=== PATIENT | female | born 1975 | race Caucasian/White ===

== ENCOUNTER 2018-12-10 14:19 | Emergency (ER) | payer OTHER ==
[~2018-12-10] VITALS: Ht 154.9 cm; Wt 70.3 kg
[~2018-12-10 14:19] MED LIST: AZITHROMYCIN250 MG PO; FLUCONAZOLE150 MG PO; GUAIFENESIN-CODE5 ML PO; HYDROCODON-ACE1 EA10 PO; KEFLEX500 MG PO; KLONOPIN0.5 MG PO; NORCO 5-325 TA1 EACH PO; PREDNISONE20 MG PO; PROVENTIL HFA6.7 GM INH; PYRIDIUM200 MG PO; SERTRALINE HCL50 MG PO; SUDAFED 12 HOU120 MG PO; WELLBUTRIN XL300 MG PO
[2018-12-10] MEDS ORDERED: ZITHROMAX1 GM PO (16:39)
[2018-12-10] MEDS ORDERED: TAMIFLU75 MG PO (16:39)
[2018-12-10] MEDS ORDERED: CODEINE-GUAIFE120 ML PO (16:39)
== END 2018-12-10 16:50 | disposition home or self-care (01) ==
LOC: ED 14:19
DX: J10.1 Influenza due to other identified influenza virus with other respiratory manifestations (principal); F41.9 Anxiety disorder, unspecified; Z91.09 Other allergy status, other than to drugs and biological substances; Z79.899 Other long term (current) drug therapy
CPT/HCPCS: 71045; 87502; 99283-25

== ENCOUNTER 2019-09-30 12:04 | Emergency (ER) | payer SELFPAY ==
[~2019-09-30] VITALS: Ht 154.9 cm; Wt 74.8 kg
[~2019-09-30 12:04] MED LIST changes: +CODEINE-GUAIFE120 ML PO; +TAMIFLU75 MG PO; +ZITHROMAX1 GM PO
--- OUTSIDE RECORDS SUMMARY | 2019-09-30 12:08 | XMS ---
PreManage Notification: JUN DILL Security Head Of Marketing Adometry Events No recent Security Events currently on file CRITERIA MET - [facility] PROVIDERS Spenser Finn Treatment Current PHONE: Unknown Crystal has no Care Guidelines for this patient. EPoli VISIT COUNT (12 MO.) 3 [facility] TOTAL 3 NOTE: Visits indicate total known visits. ED/UCC VISIT TRACKING (12 MO.) 09/30/2019 12:05 [facility] [place] TYPE: Emergency COMPLAINT: - FEVER, COUGH, SORE THROAT 12/10/2018 14:19 [facility] [place] TYPE: Emergency COMPLAINT: - COLD SYMPTOMS DIAGNOSES: - Flu due to oth ident influenza virus w oth resp manifest - Oth allergy status, oth than to drugs and biolg substances - Other residential (current) drug therapy - Fever, unspecified - Anxiety disorder, unspecified 10/12/2018 18:03 [facility] [place] TYPE: Emergency COMPLAINT: - TAILBONE INJURY DIAGNOSES: - Allergy status to oth drug/meds/biol subst status - Contusion of lower back and pelvis, initial encounter - Other fall from one level to another, initial encounter - Other terminal worker (current) drug therapy - Sacrococcygeal disorders, not elsewhere classified INPATIENT VISIT TRACKING (12 MO.) No inpatient visits to display in this time frame [id number]
[2019-09-30] MEDS ORDERED: CYCLOBENZAPRINE10 MG PO (12:49)
[2019-09-30] MEDS ORDERED: ZITHROMAX250 MG PO (15:13)
[2019-09-30] MEDS ORDERED: PREDNISONE20 MG PO (15:14)
[2019-09-30] MEDS ORDERED: VENTOLIN HFA18 GM INH (15:14)
== END 2019-09-30 15:30 | disposition home or self-care (01) ==
LOC: ED 12:04
DX: J40 Bronchitis, not specified as acute or chronic (principal); J98.01 Acute bronchospasm; F32.9 Major depressive disorder, single episode, unspecified; F41.9 Anxiety disorder, unspecified; Z91.048 Other nonmedicinal substance allergy status; Z79.899 Other long term (current) drug therapy
CPT/HCPCS: 94640; 99283; J7512

== ENCOUNTER 2020-01-08 18:20 | Emergency (ER) | payer SELFPAY ==
[~2020-01-08] VITALS: Ht 154.9 cm; Wt 74.8 kg
[~2020-01-08 18:20] MED LIST changes: +CYCLOBENZAPRINE10 MG PO; +VENTOLIN HFA18 GM INH; +ZITHROMAX250 MG PO
--- OUTSIDE RECORDS SUMMARY | 2020-01-08 18:22 | XMS ---
PreManage Notification: JUN DILL Security Manager Photo Events No recent Security Events currently on file CRITERIA MET - [facility] PROVIDERS JENNIFER WHITAKER Physician Spring Tacker 10/01/2019-Current PHONE: Unknown Spenser Finn MD PHONE: Unknown Crystal has no Care Guidelines for this patient. Bhakti VISIT COUNT (12 MO.) 2 [facility] TOTAL 2 NOTE: Visits indicate total known visits. ED/UCC VISIT TRACKING (12 MO.) 01/08/2020 18:20 [facility] [place] TYPE: Emergency COMPLAINT: - SORE THROAT 09/30/2019 12:05 [facility] [place] TYPE: Emergency COMPLAINT: - FEVER, COUGH, SORE THROAT DIAGNOSES: - Anxiety disorder, unspecified - Major depressive disorder, single episode, unspecified - Cough - Bronchitis, not specified as acute or chronic - Acute bronchospasm - Other custodial (current) drug therapy - Other nonmedicinal substance allergy status INPATIENT VISIT TRACKING (12 MO.) No inpatient visits to display in this time frame [id number]
== END 2020-01-08 18:35 | disposition home or self-care (01) ==
LOC: ED 18:20
DX: H92.02 Otalgia, left ear (principal); J02.9 Acute pharyngitis, unspecified

== ENCOUNTER 2021-11-01 17:16 | Emergency (ER) | payer OTHER ==
[~2021-11-01] VITALS: Ht 154.9 cm; Wt 74.8 kg
--- OUTSIDE RECORDS SUMMARY | 2021-11-01 17:18 | XMS ---
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 EPoli VISIT COUNT (12 MO.) 1 [facility] TOTAL 1 NOTE: Visits indicate total known visits. ED/UCC VISIT TRACKING (12 MO.) 11/01/2021 17:[address] [facility] [place] TYPE: Emergency COMPLAINT: - LT KNEE INJURY INPATIENT VISIT TRACKING (12 MO.) No inpatient visits to display in this time frame [id number]
[2021-11-01] MEDS ORDERED: HYDROCODON-ACE1 EA10 PO (20:31)
== END 2021-11-01 21:15 | disposition home or self-care (01) ==
LOC: ED 17:16
DX: S80.02XA Contusion of left knee, initial encounter (principal); W22.8XXA Striking against or struck by other objects, initial encounter; Z91.048 Other nonmedicinal substance allergy status; Z79.899 Other long term (current) drug therapy
CPT/HCPCS: 73560; 99283-25; Q0163

== ENCOUNTER 2021-12-26 13:29 | Emergency (ER) | payer OTHER ==
[~2021-12-26] VITALS: Ht 154.9 cm; Wt 74.8 kg
--- OUTSIDE RECORDS SUMMARY | 2021-12-26 13:32 | XMS ---
PreManage Notification: JUN DILL Security Candle Maker Events No recent Security Events currently on file CRITERIA MET - [facility] CARE PROVIDERS JENNIFER WHITAKER Physician Irrigator Valve Pipe 11/02/2021-Current PHONE: Unknown Crystal has no Care Guidelines for this patient. Bhakti VISIT COUNT (12 MO.) 2 DARV[facility] King TOTAL 2 NOTE: Visits indicate total known visits. ED/UCC VISIT TRACKING (12 MO.) 12/26/2021 13:30 [facility] [place] TYPE: Emergency COMPLAINT: - POSS ALLERGIC REACTION 11/01/2021 17:[address] [facility] [place] TYPE: Emergency COMPLAINT: - LT KNEE INJURY DIAGNOSES: - Pain in left knee - Other nonmedicinal substance allergy status - Contusion of left knee, initial encounter - Other longterm (current) drug therapy - Striking against or struck by other objects, initial encounter INPATIENT VISIT TRACKING (12 MO.) No inpatient visits to display in this time frame [id number]
[2021-12-26] MEDS ORDERED: MOBIC7.5 MG PO (13:48)
[2021-12-26] MEDS ORDERED: EPIPEN 2-P0.3 MG/0.3 IM (14:02)
== END 2021-12-26 15:45 | disposition home or self-care (01) ==
LOC: ED 13:29
DX: L50.0 Allergic urticaria (principal); M79.7 Fibromyalgia; Z91.048 Other nonmedicinal substance allergy status; Z79.899 Other long term (current) drug therapy
CPT/HCPCS: 96372; 99283; J0171

== ENCOUNTER 2024-05-18 18:32 | Emergency (ER) | payer OTHER ==
[~2024-05-18] VITALS: Ht 154.9 cm; Wt 57.4 kg
[~2024-05-18 18:32] MED LIST changes: +CELEBREX200 MG PO; +EPIPEN 2-P0.3 MG/0.3 IM; +MOBIC7.5 MG PO; +OZEMPIC0.25 MG/02 SUB-Q
--- OUTSIDE RECORDS SUMMARY | 2024-05-18 18:33 | XMS ---
PreManage Notification: JUN DILL Security Superintendent Sales Events No recent Security Events currently on file CRITERIA MET - [facility] CARE PROVIDERS JENNIFER WHITAKER Physician Imaging System Administrator 11/02/2021-Current PHONE: Unknown Crystal has no Care Guidelines for this patient. Bhakti VISIT COUNT (12 MO.) 3 DARV[facility] King TOTAL 3 NOTE: Visits indicate total known visits. ED/UCC VISIT TRACKING (12 MO.) 05/18/2024 18:33 [facility] [place] TYPE: Emergency COMPLAINT: - UPPER RIB PAIN 02/14/2024 15:27 [facility] [place] TYPE: Emergency COMPLAINT: - WRIST INJURY DIAGNOSES: - Anxiety disorder, unspecified - Depression, unspecified - Fibromyalgia - Long-term (current) use of injectable non-insulin antidiabetic drugs - Other enthesopathies, not elsewhere classified - Other long term care social worker (current) drug therapy - Other nonmedicinal substance allergy status - Pain in right wrist 12/06/2023 08:53 [facility] [place] TYPE: Emergency COMPLAINT: - CHEST PAIN DIAGNOSES: - Anxiety disorder, unspecified - Depression, unspecified - Fibromyalgia - Long-term (current) use of injectable non-insulin antidiabetic drugs - Other chest pain - Other half-way (current) drug therapy - Other nonmedicinal substance allergy status INPATIENT VISIT TRACKING (12 MO.) No inpatient visits to display in this time frame [id number]
[2024-05-18] MEDS ORDERED: HYDROCODON-ACE1 EA10 PO (18:47)
[2024-05-18] MEDS ORDERED: KETOROLAC TROMETHAMINE 60 MG/2 ML VIAL IM ONE (19:00)
[2024-05-18] MEDS ORDERED: CYCLOBENZAPRINE10 MG PO (19:15)
[2024-05-18] MEDS ORDERED: CYCLOBENZAPRINE HCL 10 MG HOME.PACK PO ONE (19:30)
[2024-05-18 19:45] VITALS: BP 114/83
== END 2024-05-18 19:46 | disposition home or self-care (01) ==
LOC: ED 18:32
DX: R07.89 Other chest pain (principal); E11.9 Type 2 diabetes mellitus without complications; Z91.09 Other allergy status, other than to drugs and biological substances; Z79.899 Other long term (current) drug therapy
CPT/HCPCS: 71101; 96372; 99283-25; J1885